=== PATIENT | female | born 1965 | race African-American/Black ===

== ENCOUNTER 2022-02-22 15:17 | Emergency (ER) | payer SELFPAY ==
[~2022-02-22] VITALS: Ht 165.1 cm; Wt 82.0 kg
[2022-02-22] MEDS ORDERED: LABETALOL HCL VIAL 20 MG/4 ML VIAL IV ONE (17:30)
[2022-02-22] MEDS ORDERED: ACETAMINOPHEN 325MG TABLET PO ONE (17:30)
[2022-02-22] MEDS: LABETALOL 5MG/ML SYR 20 MG/4 ML SYRINGE IV NR ×2 (17:58→19:01)
[2022-02-22 18:12] LABS: BASOPHILS % 0.4 % (0.0-2.0); EOSINOPHILS % 0.4 % (0.0-5.0); HEMATOCRIT. 38.2 % (36.0-48.0); LYMPHOCYTES % 34.5 % (20.0-50.0); MEAN CORPUSCULAR HEMOGLOBIN 30.2 pg (28.0-32.0); MEAN CORPUSCULAR VOLUME 88.4 fL (81.0-99.0); MEAN PLATELET VOLUME 7.9 fl (7.4-10.4); NEUTROPHILS % 58.7 % (40.0-76.0); PLATELET 303 x1000/uL (130-400); RED BLOOD CELL COUNT 4.32 mill/uL (4.2-5.4); RED CELL DISTRIBUTION WIDTH 13.5 % (11.6-14.6)
[2022-02-22 18:23] LABS: CHLORIDE 103 mEq/L (98-107)
[2022-02-22] MEDS ORDERED: AMLO5TAB88 MT (19:22)
[2022-02-22 20:00] VITALS: BP 170/89
== END 2022-02-22 20:06 | disposition home or self-care (01) ==
LOC: ER 15:17
DX: I10 Essential (primary) hypertension (principal)
CPT/HCPCS: 36415; 80053; 85025; 93005; 96374; 99284; J3490